=== PATIENT | female | born 1990 | race Caucasian/White ===

== ENCOUNTER 2016-07-02 08:20 | Emergency (ER) | payer OTHER ==
[~2016-07-02] VITALS: Ht 152.4 cm; Wt 56.5 kg
[2016-07-02] MEDS ORDERED: ACET-2247 PO (08:22)
[2016-07-02] MEDS ORDERED: KETOROLAC TROMETHAMINE 60 MG/2 ML VIAL IM ONE (09:30)
[2016-07-02 10:10] VITALS: BP 111/62
== END 2016-07-02 10:17 | disposition home or self-care (01) ==
LOC: EMS 08:21
DX: S39.012A Strain of muscle, fascia and tendon of lower back, initial encounter (principal); M54.30 Sciatica, unspecified side; F17.210 Nicotine dependence, cigarettes, uncomplicated; X58.XXXA Exposure to other specified factors, initial encounter; Y93.89 Activity, other specified; Y92.89 Other specified places as the place of occurrence of the external cause; Y99.8 Other external cause status
CPT/HCPCS: 96372; 99283; J1885

== ENCOUNTER 2016-09-15 12:52 | Emergency (ER) | payer OTHER ==
[~2016-09-15] VITALS: Ht 152.4 cm; Wt 63.2 kg
[~2016-09-15 12:52] MED LIST: ACET-2247 PO
[2016-09-15 13:00] VITALS: BP 102/56
[2016-09-15] MEDS ORDERED: IBUPROFEN 800 MG TABLET PO ONE (13:45)
== END 2016-09-15 14:06 | disposition home or self-care (01) ==
LOC: EMS 12:55
DX: K02.9 Dental caries, unspecified (principal); F17.210 Nicotine dependence, cigarettes, uncomplicated
CPT/HCPCS: 99281

== ENCOUNTER 2017-03-19 01:49 | Emergency (ER) | payer OTHER ==
[~2017-03-19] VITALS: Ht 152.4 cm; Wt 68.0 kg
[2017-03-19] MEDS ORDERED: LIDOCAINE HCL 2%/EPI 1:200,000/PF 20 ML VIAL INJ ONE (03:00)
[2017-03-19] MEDS ORDERED: IBUPROFEN 800 MG TABLET PO ONE (03:30)
[2017-03-19 04:04] VITALS: BP 116/68
== END 2017-03-19 04:36 | disposition home or self-care (01) ==
LOC: EMS 01:50
DX: S61.411A Laceration without foreign body of right hand, initial encounter (principal); F17.210 Nicotine dependence, cigarettes, uncomplicated; W25.XXXA Contact with sharp glass, initial encounter; Y93.89 Activity, other specified; Y92.89 Other specified places as the place of occurrence of the external cause; Y99.8 Other external cause status
CPT/HCPCS: 73130; 99284; X6474

== ENCOUNTER 2017-04-14 10:13 | Emergency (ER) | payer OTHER ==
[~2017-04-14] VITALS: Ht 152.4 cm; Wt 64.5 kg
[2017-04-14] MEDS ORDERED: IBUP-2071 PO (10:34)
[2017-04-14 11:38] VITALS: BP 129/71
[2017-04-14] MEDS ORDERED: HYDROCODONE/ACETAMINOPHEN 5-325 MG TABLET PO ONE (12:30)
== END 2017-04-14 12:48 | disposition home or self-care (01) ==
LOC: EMS 10:15
DX: N60.11 Diffuse cystic mastopathy of right breast (principal); N60.12 Diffuse cystic mastopathy of left breast; F17.210 Nicotine dependence, cigarettes, uncomplicated
CPT/HCPCS: 81025; 99283; 99406

== ENCOUNTER 2017-06-07 12:17 | Emergency (ER) | payer OTHER ==
[~2017-06-07] VITALS: Ht 152.4 cm; Wt 74.1 kg
[~2017-06-07 12:17] MED LIST changes: -ACET-2247 PO; +IBUP-2071 PO
[2017-06-07] MEDS ORDERED: ACET-784 PO (12:35)
[2017-06-07] MEDS: KETOROLAC TROMETHAMINE 60 MG/2 ML VIAL IM ONE (13:58)
[2017-06-07] MEDS: HYDROCODONE/ACETAMINOPHEN 5-325 MG TABLET PO ONE (15:46)
[2017-06-07 16:44] VITALS: BP 133/79
== END 2017-06-07 16:50 | disposition home or self-care (01) ==
LOC: EMS 12:18
DX: S92.502A Displaced unspecified fracture of left lesser toe(s), initial encounter for closed fracture (principal); S93.401A Sprain of unspecified ligament of right ankle, initial encounter; S80.01XA Contusion of right knee, initial encounter; W10.9XXA Fall (on) (from) unspecified stairs and steps, initial encounter; R03.0 Elevated blood-pressure reading, without diagnosis of hypertension; F17.200 Nicotine dependence, unspecified, uncomplicated; Y93.89 Activity, other specified; Y92.89 Other specified places as the place of occurrence of the external cause; Y99.8 Other external cause status
CPT/HCPCS: 73562; 73610; 73630; 96372; 99284; J1885

== ENCOUNTER 2021-10-21 14:01 | Emergency (ER) | payer MEDICAID, OTHER ==
[~2021-10-21] VITALS: Ht 152.4 cm; Wt 78.1 kg
[~2021-10-21 14:01] MED LIST changes: +ACET-784 PO; -IBUP-2071 PO
[2021-10-21 14:08] VITALS: BP 125/72
[2021-10-21 15:44] LABS: COVID AG,FIA SOURCE NASOPHARYNGEAL
== END 2021-10-21 16:38 | disposition home or self-care (01) ==
LOC: EMS 14:01
DX: U07.1 COVID-19 (principal); F17.210 Nicotine dependence, cigarettes, uncomplicated; Z86.69 Personal history of other diseases of the nervous system and sense organs; Z87.42 Personal history of other diseases of the female genital tract; Z98.890 Other specified postprocedural states
CPT/HCPCS: 99283